=== PATIENT | male | born 1940 | race Caucasian/White ===

== ENCOUNTER 2017-09-06 12:01 | Emergency (ER) | payer OTHER ==
[~2017-09-06] VITALS: Ht 175.3 cm; Wt 90.4 kg
[~2017-09-06 12:01] MED LIST: ADALAT CC 60 MG60 MG PO; ALDOMET500 MG PO; AMIODARONE HCL200 MG PO; APPLE CIDER VI1 EAC1 PO; ASPIR 8181 M1 PO; ASPIR-LOW81 MG PO; ASPIRIN81 M2 PO; ATORVASTATIN CA80 MG PO; BEE POLLEN550 MG PO; CALCIUM 600 +1 EAC3 PO; CALCIUM 600 +1 EAC4 PO; CARDIZEM CD120 MG PO; COLACE100 MG PO; CORDARONE200 MG PO; COUMADIN5 MG PO; CRANBERRY PLUS1 EAC1 PO; DOCUSATE SODIU100 MG PO; ECOTRIN325 MG PO; ELIQUIS5 MG PO; ESTER-C 1,0001 EACH PO; FISH OIL OMEGA1 EACH PO; FLOMAX0.4 MG PO; FOLIC ACID0.8 MG PO; LAXATIVE DIETA500 MG PO; LAXATIVE15 M2 PO; LEVOFLOXACIN750 MG PO; LEVOTHYROXINE100 MCG PO; LEVOTHYROXINE50 MCG PO; LEVOXYL137 MCG PO; LIPITOR80 MG PO; LISINOPRIL2.5 MG PO; LOPRESSOR100 M1 PO; LOVENOX80 MG/0.8 SC; METOPROLOL TAR100 MG PO; MILK OF MAGNESI10 ML PO; NIFEDICAL XL60 MG PO; NITROSTAT0.4 MG SL; PANTOPRAZOLE SO40 MG PO; PERCOCET 5/31 TABLET PO; PRINIVIL20 MG PO; SPIRONOLACTONE25 MG PO; ST. JOSEPH ASPI81 MG PO; SUPER TWIN EP1250 MG PO; TAMSULOSIN HCL0.4 MG PO; TIROSINT100 MCG PO; TYLENOL WITH C1 EACH PO; ZESTORETIC 20-1 EAC1 NG; ZESTORETIC 20-1 EAC1 PO; [UNRECOGNIZED DRUG - OTHER] PO; herbal laxative
[2017-09-06 12:48] LABS: HEMATOCRIT 37.2 % (38.0-50.0); HEMOGLOBIN 12.9 G/DL (12.5-16.6); MCH 33.9 PG (29.0-34.0); MCHC 34.7 G/DL (30.0-36.0); MCV 97.6 FL (86-99); PLATELET COUNT 185 K/uL (156-360); RBC DIS.WIDTH-CV 13.5 % (11.8-14.6); RED BLOOD COUNT 3.81 M/uL (4.00-5.50); WHITE BLOOD COUNT 7.8 K/uL (4.1-10.2)
[2017-09-06 12:56] LABS: INTER. NORMALIZED RATIO 1.6
[2017-09-06 12:59] LABS: ALBUMIN 4.1 g/dL (3.2-4.8); CHLORIDE 102 mEq/L (99-109); POTASSIUM 3.9 mEq/L (3.7-5.4); PTT 34.6 SEC (25-37); SODIUM 141 mEq/L (136-147)
[2017-09-06 13:02] LABS: GLUCOSE 108 mg/dL (70-99); TOTAL PROTEIN 7.2 g/dL (6.4-8.3)
[2017-09-06 13:04] LABS: TOTAL BILIRUBIN 1.8 mg/dL (0.0-1.0)
[2017-09-06 13:05] LABS: ALKALINE PHOSPHATASE 101 IU/L (3-129); CREATININE 1.1 mg/dL (0.6-1.3); GFR ESTIMATE (CALCULATED) > 59 mL/min/ (58.99-99999)
[2017-09-06 13:06] LABS: UREA NITROGEN (BUN) 11 mg/dL (9-23)
[2017-09-06 13:07] LABS: AST (GOT) 21 IU/L (2-34)
[2017-09-06 13:08] LABS: ALT (GPT) 23 IU/L (3-49)
[2017-09-06 13:09] LABS: TROP-I INTERPRETATION NEGATIVE
[2017-09-06 16:01] VITALS: BP 143/76
== END 2017-09-06 16:02 | disposition home or self-care (01) ==
LOC: EME 12:01
DX: R00.1 Bradycardia, unspecified (principal); I48.91 Unspecified atrial fibrillation; I10 Essential (primary) hypertension; E78.5 Hyperlipidemia, unspecified; I25.2 Old myocardial infarction; K21.9 Gastro-esophageal reflux disease without esophagitis; Z86.73 Personal history of transient ischemic attack (TIA), and cerebral infarction without residual deficits; G35 Multiple sclerosis; N40.0 Benign prostatic hyperplasia without lower urinary tract symptoms; Z85.46 Personal history of malignant neoplasm of prostate
CPT/HCPCS: 71046; 80048 91; 80053; 83880; 84484; 85027; 85610; 85730; 93005; 99281; 99285